=== PATIENT | female | born 1980 | race African-American/Black ===

== ENCOUNTER 2017-06-11 15:34 | Observation (INO) | payer OTHER ==
[~2017-06-11] VITALS: Ht 167.6 cm; Wt 85.3 kg
[~2017-06-11 15:34] MED LIST: DSS100 PO; FERR-89 PO; IBUP-2070 PO; PERCT PO; PREN1TAB80 PO
[2017-06-17 10:29] VITALS: BP 126/70
== END 2017-06-17 12:25 | disposition home or self-care (01) ==
LOC: 4S 06-17 10:05
PROVIDERS: ADMIT Obstetrics & Gynecology; ATTEND Obstetrics & Gynecology
DX: O09.523 Supervision of elderly multigravida, third trimester (principal); Z3A.37 37 weeks gestation of pregnancy
CPT/HCPCS: 59025; G0378

== ENCOUNTER 2017-06-19 11:05 | Observation (INO) | payer OTHER ==
[~2017-06-19] VITALS: Ht 167.6 cm; Wt 85.3 kg
[~2017-06-19 11:05] MED LIST changes: -DSS100 PO; -FERR-89 PO; -IBUP-2070 PO; -PERCT PO
[2017-06-19 12:30] VITALS: BP 112/90
== END 2017-06-19 12:30 | disposition home or self-care (01) ==
LOC: 4S 11:05
PROVIDERS: ADMIT Obstetrics & Gynecology; ATTEND Obstetrics & Gynecology
DX: O09.523 Supervision of elderly multigravida, third trimester (principal); Z3A.38 38 weeks gestation of pregnancy
CPT/HCPCS: 59025; G0378

== ENCOUNTER 2017-07-20 09:55 | Inpatient (IN) | payer OTHER ==
[~2017-07-20] VITALS: Ht 167.6 cm; Wt 89.8 kg
[2017-07-20] MEDS ORDERED: RINGERS SOLUTION,LACTATED 1,000 ML IV PRN (10:35)
[2017-07-20] MEDS ORDERED: LIDOCAINE HCL/PF 1% 30 ML VIAL INJ PRN (10:45)
[2017-07-20] MEDS ORDERED: FentaNYL CITRATE-PF 100 MCG/2 ML VIAL IVP PRN (10:45)
[2017-07-20] MEDS ORDERED: METOCLOPRAMIDE HCL 5 MG/ML 2 ML VIAL IVP PRN (10:45)
[2017-07-20] MEDS ORDERED: METHYLERGONOVINE MALEATE 0.2 MG/ML VIAL IM PRN (10:45)
[2017-07-20] MEDS ORDERED: MISOPROSTOL 25 MCG TABLET PR ONE (10:45)
[2017-07-20] MEDS ORDERED: CITRIC ACID/SODIUM CITRATE 30 ML SOLUTION UDCUP PO PRN (10:45)
[2017-07-20] MEDS ORDERED: AMPICILLIN SODIUM 2 GM/NS 100 ML IV ONE (11:00)
[2017-07-20] MEDS: RINGERS SOLUTION,LACTATED 1,000 ML IV SCH ×2 (11:07→14:53)
[2017-07-20 11:10] LABS: BASOPHILS # (AUTO) 0.03 K/uL (0.00-0.20); BASOPHILS % (AUTO) 0.4 % (0.0-2.0); EOSINOPHILS # (AUTO) 0.07 K/uL (0.00-0.70); EOSINOPHILS % (AUTO) 0.91 % (1.0-6.0); HEMATOCRIT 32.5 % (36-46); HEMOGLOBIN 11.4 g/dL (12.0-16.0); LYMPHOCYTES # (AUTO) 0.8 K/uL (1.0-4.8); MEAN CORPUSCULAR HEMOGLOBIN 30.2 pg (26.0-34.0); MEAN CORPUSCULAR VOLUME 86 fL (80-100); MONOCYTES # (AUTO) 0.6 K/uL (0.1-1.0); MONOCYTES % (AUTO) 7.5 % (2.0-9.0); NEUTROPHILS # (AUTO) 5.9 K/uL (1.8-7.7); NEUTROPHILS % (AUTO) 80.2 % (40.0-70.0); RED BLOOD CELL COUNT(AUTO) 3.77 MIL/uL (4.00-5.20); RED CELL DISTRIBUTION WIDTH 14.5 % (11.5-14.5); WHITE BLOOD COUNT (AUTO) 7.4 K/uL (4.5-11.0)
[2017-07-20 11:21] VITALS: BP 117/69
[2017-07-20] MEDS: AMPICILLIN SODIUM 1 GM/NS 50 ML IV SCH ×2 (14:53→23:05)
[2017-07-20] MEDS ORDERED: OXYTOCIN 30 UNITS/LACT RINGERS 500 ML IV PRN (17:21)
[2017-07-20] MEDS ORDERED: FentaNYL/BUPIV 0.125%/NS/PF 200 ML ED ONE (17:44)
[2017-07-20] MEDS ORDERED: LIDOCAINE HCL/PF 2% 5 ML VIAL ONE (17:44)
[2017-07-20] MEDS ORDERED: FentaNYL/BUPIV 0.125%/NS/PF 200 ML ED PRN (17:58)
[2017-07-20] MEDS ORDERED: NALBUPHINE HCL 10 MG/ML VIAL IVP PRN (18:00)
[2017-07-20] MEDS ORDERED: DiphenhydrAMINE HCL 50 MG/ML VIAL IVP PRN (18:00)
[2017-07-20] MEDS ORDERED: PROMETHAZINE HCL 12.5 MG in SODIUM CHLORIDE 0.9% 50 ML IV PRN (18:00)
[2017-07-20] MEDS ORDERED: ONDANSETRON HCL 4 MG/2 ML VIAL IVP PRN (18:00)
[2017-07-21] MEDS: RINGERS SOLUTION,LACTATED 1,000 ML IV SCH (01:34)
[2017-07-21] MEDS: AMPICILLIN SODIUM 1 GM/NS 50 ML IV SCH ×3 (03:04→10:51)
[2017-07-21] MEDS ORDERED: OXYTOCIN 20 UNITS/LACT RINGERS 1,000 ML IV ONE (10:04)
[2017-07-21] MEDS ORDERED: FentaNYL/BUPIV 0.125%/NS/PF 200 ML ED ONE (10:04)
[2017-07-21] MEDS ORDERED: MISOPROSTOL 100 MCG TABLET PR PRN (10:15)
[2017-07-21] MEDS ORDERED: LIDOCAINE HCL/PF 1% 30 ML VIAL ONE (11:12)
[2017-07-21] MEDS ORDERED: OXYTOCIN 30 UNITS/LACT RINGERS 500 ML IV ONE (13:26)
[2017-07-21] MEDS ORDERED: BENZOCAINE 20%/MENTHOL 56 GM SPRAY CANISTER TP PRN ×2 (14:15→14:45)
[2017-07-21] MEDS ORDERED: GLYCERIN/WITCH HAZEL LEAF 40 PADS JAR TP PRN ×2 (14:15→14:45)
[2017-07-21] MEDS ORDERED: LANOLIN 7 GM OINTMENT TP PRN ×2 (14:15→14:45)
[2017-07-21] MEDS ORDERED: OxyCODONE HCL/ACETAMINOPHEN 5-325 MG TABLET PO PRN ×3 (14:15→14:45)
[2017-07-21] MEDS ORDERED: RINGERS SOLUTION,LACTATED 1,000 ML IV ONE (14:36)
[2017-07-21] MEDS ORDERED: IBUPROFEN 600 MG TABLET PO PRN (14:45)
[2017-07-21] MEDS ORDERED: MEASLES/MUMPS/RUBELLA VACCINE, LIVE 0.5 ML/VIAL SQ ONE (14:45)
[2017-07-21] MEDS: IBUPROFEN 600 MG TABLET PO PRN (18:38)
[2017-07-21] MEDS: MAGNESIUM HYDROXIDE SUSPENSION 30 ML UDCUP PO SCH (20:43)
[2017-07-21] MEDS: OxyCODONE HCL/ACETAMINOPHEN 5-325 MG TABLET PO PRN (20:43)
[2017-07-21] MEDS ORDERED: MAGNESIUM HYDROXIDE SUSPENSION 30 ML UDCUP PO SCH (21:00)
[2017-07-21 23:43] VITALS: BP 124/68
[2017-07-22] MEDS: IBUPROFEN 600 MG TABLET PO PRN ×4 (00:06→18:54)
[2017-07-22] MEDS: MAGNESIUM HYDROXIDE SUSPENSION 30 ML UDCUP PO SCH ×2 (08:23→20:37)
[2017-07-22] MEDS: OxyCODONE HCL/ACETAMINOPHEN 5-325 MG TABLET PO PRN ×2 (10:28→20:37)
[2017-07-23] MEDS: OxyCODONE HCL/ACETAMINOPHEN 5-325 MG TABLET PO PRN ×3 (06:49→13:00)
[2017-07-23] MEDS: MAGNESIUM HYDROXIDE SUSPENSION 30 ML UDCUP PO SCH (09:00)
== END 2017-07-23 13:00 | disposition home or self-care (01) | DRG 560 ==
LOC: 4S 09:55 → OBSVTOIN 09:55 → 4S 12:03
PROVIDERS: ADMIT Obstetrics & Gynecology; ATTEND Obstetrics & Gynecology
PROC: 10E0XZZ Delivery of Products of Conception, External Approach (ICD-10-PCS; principal; 2017-07-21)
PROC: 0KQM0ZZ Repair Perineum Muscle, Open Approach (ICD-10-PCS; 2017-07-21)
PROC: 3E0S3CZ (ICD-10-PCS; 2017-07-21)
PROC: 00HU33Z Insertion of Infusion Device into Spinal Canal, Percutaneous Approach (ICD-10-PCS; 2017-07-21)
DX: O69.81X0 Labor and delivery complicated by cord around neck, without compression, not applicable or unspecified (principal); O09.523 Supervision of elderly multigravida, third trimester; O70.1 Second degree perineal laceration during delivery; Z37.0 Single live birth; Z3A.42 42 weeks gestation of pregnancy
CPT/HCPCS: 76805; 85461; 86850; 86870; 86900; 86901; J0290; J2590; J3490; J7120

== ENCOUNTER 2018-09-02 09:56 | Emergency (ER) | payer SELFPAY ==
[~2018-09-02] VITALS: Ht 167.6 cm; Wt 71.8 kg
[2018-09-02 11:35] VITALS: BP 120/65
== END 2018-09-02 11:39 | disposition home or self-care (01) ==
LOC: EMS 09:57
DX: H01.111 Allergic dermatitis of right upper eyelid (principal)

== ENCOUNTER 2023-05-07 10:30 | Emergency (ER) | payer OTHER ==
[~2023-05-07] VITALS: Ht 165.1 cm; Wt 71.4 kg
[2023-05-07 10:32] VITALS: TEMP 98.1
[2023-05-07] MEDS ORDERED: PENICILLIN V POTASSIUM 500 MG TABLET PO ONE (11:15)
[2023-05-07] MEDS ORDERED: KETOROLAC TROMETHAMINE 60 MG/2 ML VIAL IM ONE (11:15)
[2023-05-07] MEDS ORDERED: PENI500T2 PO (11:30)
[2023-05-07] MEDS ORDERED: IBUP-1492 PO (11:30)
[2023-05-07 11:38] VITALS: BP 122/84; PULSE 74; RESP 16
[2023-05-07] MEDS ORDERED: ONDA-104 PO (12:23)
== END 2023-05-07 12:41 | disposition home or self-care (01) ==
LOC: EMS 10:32
DX: K08.89 Other specified disorders of teeth and supporting structures (principal)
CPT/HCPCS: 99283; 96372; J1885